=== PATIENT | male | born 1930 | race Caucasian/White ===

== ENCOUNTER 2016-08-27 18:14 | Inpatient (IN) | payer OTHER ==
--- NOTE | 2016-08-27 18:21 | EDPHY ---
H & P Time Seen by Provider: 08/27/16 18:19 HPI/ROS: CHIEF COMPLAINT: Mechanical fall, left hip pain and deformity HISTORY OF PRESENT ILLNESS: The patient presents to the ED after mechanical fall at a restaurant by paramedics. The patient reportedly slipped on a floor landing on his left hip. The patient developed immediate pain, deformity, shortening and internal rotation of the left hip. He was unable to ambulate. The patient does have a history of dementia. The patient denies any additional complaints of headache, neck pain, chest pain, back pain or additional extremity complaints. The patient denies antecedent chest pain, palpitations or shortness of breath. The patient complains of moderate pain with movement to his left hip. REVIEW OF SYSTEMS: A comprehensive 10 point review of systems is otherwise negative aside from elements mentioned in the history of present illness. Source: Patient, EMS - Medical/Surgical History Hx Asthma: No Hx Chronic Respiratory Disease: No Hx Diabetes: No Hx Cardiac Disease: Yes Hx Renal Disease: No Hx Cirrhosis: No Hx Alcoholism: No Hx HIV/AIDS: No Hx Splenectomy or Spleen Trauma: No Other PMH: DE, 3 stents, kidney stones - Social History Smoking Status: Former smoker - Physical Exam Exam: General Appearance: Elderly male, mild discomfort secondary to pain Head: Atraumatic Eyes: Pupils equal, round, reactive ENT, Mouth: No hemotympanum, no oral trauma Neck: Nontender, trachea midline Respiratory: No chest wall tender, subcutaneous air, lungs clear bilaterally Cardiovascular: Regular rate and rhythm Abdomen: Abdomen is soft and nontender, pelvis stable Skin: No lacerations, No abrasion Back: No midline T/L/S pain Extremities: Left hip is tender to palpation, shortening and internal rotation noted Neurological: A&Ox3, normal motor function, normal sensory exam Constitutional: Initial Vital Signs Temperature (C) 36.5 C 08/27/16 18:21 Heart Rate 77 08/27/16 18:21 Respiratory Rate 16 08/27/16 18:21 Blood Pressure 153/81 H 08/27/16 18:21 O2 Sat (%) 91 L 08/27/16 18:21 O2 Delivery Mode Room Air Allergies/Adverse Reactions: No Known Allergies Allergy (Verified 01/09/14 20:14) Home Medications: Medication Instructions Recorded Citalopram [CeleXA 20 MG] 20 mg PO 02/18/12 Tamsulosin HCl [Flomax 0.4 MG (*)] 0.4 mg PO DAILY8 02/18/12 Acetaminophen [Tylenol 325mg (*)] 500 - 1,000 mg PO Q4 PRN #30 tab 02/20/12 Aspirin EC [Aspirin EC 325 mg (*)] 325 mg PO DAILY #30 tab 02/20/12 Carvedilol [Coreg] 6.25 mg PO BID #60 tablet 02/20/12 Clopidogrel Bisulfate [Plavix (*)] 75 mg PO DAILY #30 tab 02/20/12 Nitroglycerin [Nitrostat 0.4 mg 0.4 mg SL PRN PRN #15 btl 02/20/12 (*)] Simvastatin [Zocor 20 mg] 20 mg PO DAILY18 #0 tab 02/20/12 oxyCODONE/APAP 5/325 [Percocet 1 - 2 tab PO Q4H PRN #20 tab 01/09/14 5/325 (RX)] Medical Decision Making - Diagnostics EKG Interpretation: EKG: Complete interpretation has been separately recorded in the [employer] archive. Summary impression: Sinus rhythm, bifascicular block Imaging Results: Imaging Impressions Chest X-Ray 08/27/16 18:18 Impression: Moderate cardiomegaly. Scarring left lower lobe. No acute abnormality identified. Hip X-Ray 08/27/16 18:18 Impression: 1. Angulated transverse fracture involving the base of the left femoral neck. 2. Indeterminate sclerotic lesion left iliac wing. If prior films are available , comparison would be of benefit. ED Course/Re-evaluation: The patient presents to the ED with clinical evidence of a left hip fracture. The patient had an IV established. He received 4 mg of IV morphine. The patient was placed on a housing installer. The patient was taken for a stat x- ray of his left hip which demonstrates a femoral neck fracture. The patient repeat examination by myself x2 in the ED without additional traumatic injury identified clinically. Consultation was made with Dr. Marlon Brewer from the orthopedic service. Consultation was made with Dr. Ralph Bourgeois from the hospitalist service. The patient will be admitted to Ortho bed this evening. Preoperative clearance per medicine. The patient should be kept NPO after midnight. The patient has been typed and crossed. Preoperative laboratory studies are unremarkable. Patient will be admitted to the ortho floor this evening. The patient was given an additional IV dose of morphine for pain control at 7: 00 p.m.. Differential Diagnosis: Differential diagnosis considered includes hip fracture, pelvic fracture, arrhythmia, critical anemia, dehydration - Data Points Laboratory Results: Laboratory Results 08/27/16 18:36 08/27/16 18:36 08/27/16 08/27/16 08/27/16 18:36 18:36 18:36 WBC 8.32 10^3/uL 10^3/uL (3.80-9.50) RBC 4.16 10^6/uL L 10^6/uL (4.40-6.38) Hgb 13.4 g/dL L g/dL (13.7-17.5) Hct 39.7 % L % (40.0-51.0) MCV 95.4 fL fL (81.5-99.8) MCH 32.2 pg pg (27.9-34.1) MCHC 33.8 g/dL g/dL (32.4-36.7) RDW 12.8 % % (11.5-15.2) Plt Count 47 10^3/uL L 10^3/uL (150-400) MPV 10.6 fL fL (8.7-11.7) Neut % (Auto) 47.3 % % (39.3-74.2) Lymph % (Auto) 41.9 % % (15.0-45.0) Beadle % (Auto) 7.2 % % (4.5-13.0) Eos % (Auto) 2.6 % % (0.6-7.6) Baso % (Auto) 0.4 % % (0.3-1.7) Nucleat RBC Rel Count 0.0 % % (0.0-0.2) Absolute Neuts (auto) 3.93 10^3/uL 10^3/uL (1.70-6.50) Absolute Lymphs (auto) 3.49 10^3/uL H 10^3/uL (1.00-3.00) Absolute Monos (auto) 0.60 10^3/uL 10^3/uL (0.30-0.80) Absolute Eos (auto) 0.22 10^3/uL 10^3/uL (0.03-0.40) Absolute Basos (auto) 0.03 10^3/uL 10^3/uL (0.02-0.10) Absolute Nucleated RBC 0.00 10^3/uL 10^3/uL (0-0.01) Immature Gran % 0.6 % % (0.0-1.1) Immature Gran # 0.05 10^3/uL 10^3/uL (0.00-0.10) Platelet Estimate Pending PT 13.6 SEC SEC (12.0-15.0) INR 1.05 (0.83-1.16) APTT 29.6 SEC SEC (23.0-38.0) Sodium 138 mEq/L mEq/L (134-144) Potassium 4.3 mEq/L mEq/L (3.5-5.2) Chloride 103 mEq/L mEq/L (97-110) Carbon Dioxide 23 mEq/l mEq/l (22-31) Anion Gap 12 mEq/L mEq/L (8-16) BUN 22 mg/dL mg/dL (7-23) Creatinine 1.2 mg/dL mg/dL (0.7-1.3) Estimated GFR 58 Glucose 100 mg/dL mg/dL (70-100) Calcium 9.3 mg/dL mg/dL (8.5-10.4) Medications Given: Discontinued Medications Morphine Sulfate (Morphine) 4 mg IVP EDNOW ONE Stop: 08/27/16 18:41 Last Admin: 08/27/16 18:44 Dose: 4 mg Morphine Sulfate (Morphine) 4 mg IVP EDNOW ONE Stop: 08/27/16 19:27 Last Admin: 08/27/16 19:27 Dose: 4 mg Departure - Departure Disposition: [facility] Inpatient Acute Clinical Impression: Left displaced femoral neck fracture, Vascular dementia, Coronary artery disease Condition: Fair Referrals: Patient,NotPresent [Primary Care Provider] - As per Instructions
[2016-08-27 18:44] LABS: % IMMATURE GRANULYOCYTES 0.6 % (0.0-1.1); ABSOLUTE IMMATURE GRANULOCYTES 0.05 10^3/uL (0.00-0.10); ADD DIFF? NO; ADD MORPH? NO; ADD SCAN? NO; ATYPICAL LYMPHOCYTE FLAG 10 (0-99); FRAGMENT RBC FLAG 0 (0-99); HEMATOCRIT 39.7 % (40.0-51.0); HEMOGLOBIN 13.4 g/dL (13.7-17.5); LEFT SHIFT FLG 0 (0-99); LIPEMIA HEMOLYSIS FLAG 90 (0-99); MEAN CELL HEMOGLOBIN 32.2 pg (27.9-34.1); MEAN CELL HEMOGLOBIN CONCENTR. 33.8 g/dL (32.4-36.7); MEAN CELL VOLUME 95.4 fL (81.5-99.8); MEAN PLATELET VOLUME 10.6 fL (8.7-11.7); PLATELET CLUMPS FLAG 30 (0-99); RED BLOOD CELL COUNT 4.16 10^6/uL (4.40-6.38); RED CELL DISTRIBUTION WIDTH 12.8 % (11.5-15.2)
[2016-08-27 19:12] LABS: ANION GAP 12 mEq/L (8-16); CALCIUM 9.3 mg/dL (8.5-10.4); CARBON DIOXIDE 23 mEq/l (22-31); CHLORIDE 103 mEq/L (97-110); CREATININE 1.2 mg/dL (0.7-1.3); GLOMERULAR FILTRATION RATE 58; GLUCOSE 100 mg/dL (70-100); INR 1.05 (0.83-1.16); POTASSIUM 4.3 mEq/L (3.5-5.2); PROTIME(PATIENT) 13.6 SEC (12.0-15.0); SODIUM 138 mEq/L (134-144)
[2016-08-27 19:13] LABS: APTT 29.6 SEC (23.0-38.0)
--- NOTE | 2016-08-27 19:24 | CPEKG ---
Heart Rate: 72 RR Interval: 833 P-R Interval: 165 QRSD Interval: 194 QT Interval: 492 QTC Interval: 539 P Chesterfield: 0 QRS Chesterfield: -61 T Wave Chesterfield: 23 EKG Severity - ABNORMAL ECG - EKG Impression: SINUS RHYTHM EKG Impression: RBBB AND LAFB Electronically Signed By: Xander Stevens 27-Aug-2016 22:09:30
[2016-08-27 19:53] LABS: % IMMATURE GRANULYOCYTES 0.5 % (0.0-1.1); ABSOLUTE IMMATURE GRANULOCYTES 0.04 10^3/uL (0.00-0.10); ADD DIFF? NO; ADD MORPH? NO; ADD SCAN? NO; ATYPICAL LYMPHOCYTE FLAG 10 (0-99); FRAGMENT RBC FLAG 0 (0-99); HEMATOCRIT 37.2 % (40.0-51.0); LEFT SHIFT FLG 10 (0-99); LIPEMIA HEMOLYSIS FLAG 90 (0-99); MEAN CELL HEMOGLOBIN 33.2 pg (27.9-34.1); MEAN CELL HEMOGLOBIN CONCENTR. 34.9 g/dL (32.4-36.7); MEAN CELL VOLUME 94.9 fL (81.5-99.8); MEAN PLATELET VOLUME 10.6 fL (8.7-11.7); PLATELET CLUMPS FLAG 10 (0-99); RED BLOOD CELL COUNT 3.92 10^6/uL (4.40-6.38); RED CELL DISTRIBUTION WIDTH 12.7 % (11.5-15.2)
[2016-08-27 20:24] LABS: PLATELET COUNT 194 10^3/uL (150-400)
[2016-08-27] MEDS ORDERED: ONDANSETRON DISINTEGRATING 4 MG TAB PO PRN (21:33)
[2016-08-27] MEDS ORDERED: ONDANSETRON 4 MG/2 ML VIAL IVP PRN (21:33)
[2016-08-27] MEDS: oxyCODONE IR 5 MG TAB PO PRN (21:52)
--- NOTE | 2016-08-27 21:53 | GCON ---
[f rep st] CONSULTATION DATE OF CONSULTATION: 08/27/2016 CHIEF COMPLAINT: Left hip pain, status post fall earlier this evening. HISTORY OF PRESENT ILLNESS: This is an 86-year-old male who presented to the ER via paramedics, sta tus post fall, complaining of left hip pain. The patient states he was going to dinner with his fam sabrina when he lost his balance and fell onto his left side. He had immediate pain in the left hip. T he patient states the pain is currently constant and an 8/10. The patient states he is unable to am bulate. The patient denies any current fever, chills, chest pain, headache, numbness, tingling, or weakness. The patient states at baseline he lives at home independently with his . He states h e walks slowly but does not use any type of cane or walker for ambulation. PAST MEDICAL HISTORY: Per report, he has had a myocardial infarction with stents placed, kidne y stones, hernia repair, and currently has prostate cancer and is not undergoing any type of treatme nt. PAST SURGICAL HISTORY: Stent placement x3, hernia repair, and right knee surgery when he was in [facility]. MEDICATIONS: Per report, he takes a full-strength aspirin daily, Prosteon, Flomax, Celexa, and various supplements. ALLERGIES: No known drug allergies. REVIEW OF SYSTEMS: No other complaints after a 10-point review. PHYSICAL EXAMINATION: GENERAL: The patient is a healthy, well-appearing male. He is alert, active , and in slight distress. HEENT: Head is normocephalic, atraumatic. Nose, ears, and mouth appear normal. Eye motion is intact. NECK: Normal in appearance with midline trachea. LUNGS: Chest mot ion appears normal. Respirations are nonlabored. MUSCULOSKELETAL: Skin is intact over the lower e xtremities bilaterally. There is no edema, ecchymosis, erythema or pallor. Range of motion of the left lower extremity is limited secondary to pain. He is able to wiggle his toes and move his feet bilaterally. The patient has full range of motion of his upper extremities bilaterally. The patien t has slight tenderness to palpation over the left hip. Sensation is intact throughout. Dorsalis p linwood pulses 2+ with brisk capillary refill. Calves are soft and nontender with negative Homans. SK IN: Please see dictation above. Otherwise, no other abrasions, erythema, or tattoos. NEUROLOGIC: Appears alert and oriented to person, place and time. Speech is fluid and fluent. PSYCHIATRIC: A ffect is normal. RADIOGRAPHIC DATA: 2-view radiographs are taken of the left hip, which show a transverse fracture a t the base of the left femoral neck. ASSESSMENT AND PLAN: Left femoral neck fracture. Discussed with patient and his family treatment f or this type of fracture is a left hip hemiarthroplasty with a possible total hip arthroplasty. The patient will remain at bed rest tonight and will be n.p.o. after midnight. Surgery is scheduled fo r tomorrow on August 28, 2016. Risks, benefits, and alternatives were discussed with the patient and h is , and they agree to proceed with surgery. Formal consent was reviewed and signed by both the and the patient. Care tonight will focus on pain control. Medicine team will clear for surge ry. Antibiotics on hold for the preop area. This plan was reviewed and discussed with Dr. Brewer t he on-call physician. The patient and his family agree and understand the treatment plan, and all o f their questions have been answered. /[id number]/MODL
--- NOTE | 2016-08-27 22:08 | GHP ---
[f rep st] HISTORY AND PHYSICAL DATE OF ADMISSION: 08/27/2016 CHIEF COMPLAINT: Fall and left hip pain. HISTORY OF PRESENT ILLNESS: This is an 86-year-old man, with history of Parkinson's, as well as cor onary artery disease, who presents after having a fall. He got up out of his car going into a resta urant, lost his balance, fell on his left hip. He tried to stand, but was unable to bear weight on that leg. He describes the pain in his left hip as severe. He has sensation and motor in his foot. He is not very ambulatory or active at baseline. He can walk up a flight of stairs, but he says it takes him about 5 minutes. He is taking an aspirin, but no other blood thinners. PAST MEDICAL/SURGICAL HISTORY: 1. Coronary artery disease, status post drug-eluting stent in 2011. 2. Parkinson disease. 3. Vascular dementia. 4. Hypertension. 5. Hyperlipidemia. 6. Depression. 7. BPH. MEDICATIONS: Please see medication reconciliation. ALLERGIES: None. FAMILY HISTORY: Parents are . SOCIAL HISTORY: He is accompanied by his . They live up on [facility]. REVIEW OF SYSTEMS: A 10-point review of systems is conducted and is negative except per HPI. PHYSICAL EXAMINATION: VITAL SIGNS: Blood pressure 116/88, heart rate 72, respiration rate 16, satt ing 95% on 2 L. Temperature 36.6. GENERAL: The patient appears mildly uncomfortable, lying on his back with his left leg externally rotated and foreshortened. HEENT: Shows him to be normocephalic , atraumatic. CARDIOVASCULAR: Shows regular rate and rhythm. No murmurs, rubs, or gallops. PULMO NARY: Shows lungs clear to auscultation bilaterally. ABDOMEN: Soft, nontender, nondistended. SKI N: Shows no rash. : Shows no Archer. NEUROLOGIC: Shows him to be alert and oriented x3. He is moving all extremities. PSYCHIATRIC: Shows normal mood and affect. EXTREMITIES: Left extremity shows it to be externally rotated, foreshortened. His foot is warm. He has a palpable dorsalis ped is pulse. He has motion and sensation intact in his left foot. DATA: 1. I reviewed his chart, including his previous hospitalization for when he had an NSTEMI, received stents. 2. EKG, which I personally viewed and interpreted, shows right bundle branch block and left anterio r fascicular block. This is still very similar to EKG, which was done in 2012. 3. Hip x-ray, which I personally reviewed and interpreted, shows a femoral neck fracture. 4. Chest x-ray, which I personally reviewed and interpreted, shows borderline cardiomegaly. IMPRESSION AND PLAN: This is an 86-year-old man, with multiple medical problems, presents with a hi p fracture. 1. Hip fracture: Will require operative fixation. Dr. Brewer has been consulted. Planning for ope rating room tomorrow. 2. Perioperative evaluation: He is at higher risk given his coronary artery disease and likely cer ebral vascular disease. Because of this, as well as his heart, his known coronary artery disease, marco gonsalves will obtain an echocardiogram prior to going to surgery. I have ordered that for this morning. Marco gonsalves will continue statin and beta melonie perioperatively. 3. Coronary artery disease: Not having any chest pain for some time. Does not have any angina. S eems stable for now. Workup as above. Would involve Cardiology if there are any concerns on his ec hocardiogram. 4. Parkinson disease: Continue Sinemet. 5. Dementia: Seems to be providing a reasonable history. His does provide some. This would put him at higher risk for delirium. 6. Venous thromboembolism risk: He is will be high risk with a hip fracture. We will hold venous thromboembolism prophylaxis tonight, but will need to start postoperatively. 7. Code status: He would like to be Do Not Resuscitate. He and his are clear on this. His s on is present during this conversation. /[id number]/MODL
[2016-08-27] MEDS ORDERED: NITROGLYCERIN 0.4 MG BTL SL PRN (22:47)
[2016-08-28] MEDS: oxyCODONE IR 5 MG TAB PO PRN ×2 (02:22→05:42)
[2016-08-28 05:53] LABS: % IMMATURE GRANULYOCYTES 0.4 % (0.0-1.1); ABSOLUTE IMMATURE GRANULOCYTES 0.04 10^3/uL (0.00-0.10); ADD DIFF? NO; ADD MORPH? NO; ADD SCAN? NO; ATYPICAL LYMPHOCYTE FLAG 0 (0-99); FRAGMENT RBC FLAG 0 (0-99); HEMATOCRIT 37.3 % (40.0-51.0); HEMOGLOBIN 12.7 g/dL (13.7-17.5); LEFT SHIFT FLG 20 (0-99); LIPEMIA HEMOLYSIS FLAG 90 (0-99); MEAN CELL HEMOGLOBIN 32.9 pg (27.9-34.1); MEAN CELL VOLUME 96.6 fL (81.5-99.8); MEAN PLATELET VOLUME 11.2 fL (8.7-11.7); PLATELET CLUMPS FLAG 0 (0-99); PLATELET COUNT 162 10^3/uL (150-400); RED BLOOD CELL COUNT 3.86 10^6/uL (4.40-6.38); RED CELL DISTRIBUTION WIDTH 12.9 % (11.5-15.2)
[2016-08-28 05:59] LABS: ANION GAP 8 mEq/L (8-16); CARBON DIOXIDE 25 mEq/l (22-31); CHLORIDE 105 mEq/L (97-110); CREATININE 1.2 mg/dL (0.7-1.3); GLOMERULAR FILTRATION RATE 58; GLUCOSE 123 mg/dL (70-100); POTASSIUM 4.2 mEq/L (3.5-5.2); SODIUM 138 mEq/L (134-144)
[2016-08-28] MEDS ORDERED: ceFAZolin 2 GM/DEXTROSE 100 ML IV ONE (06:00)
[2016-08-28] MEDS: TAMSULOSIN HCL 0.4 MG CAP PO SCH (08:16)
[2016-08-28] MEDS: CITALOPRAM 20 MG TAB PO SCH (08:16)
[2016-08-28] MEDS: NS 1,000 ML IV SCH ×2 (08:17→20:13)
--- NOTE | 2016-08-28 08:57 | ECHO ---
[id number] + + [id number] : : [place] [id number] : : [phone] + + Adult Echocardiographic Report + -----+ :Name: ALEJO ESPINOZA WStudy Date: 08/28/2016 07:39 AM : : Hospital Admission Number: [id number] Location : 388: :: [id number] Gender: Male Height: 73 in : :Age: 86 yrs Race: WH Weight: 260 lb : :Reason For Study: Pre op hip : : BSA: 2.4 meters2 : :History: CAD : + -----+ MMode/2D Measurements \T\ Calculations LVIDd: 5.8 cm EDV(Teich): 166.6 ml Ao root diam: 3.8 cm LA dimension: 4.0 cm Normal Measurement Values: + + :LVIDd (3.5-5.7cm) IVSd (0.6-1.1cm) LVPWd (0.6-1.1cm) Aortic Root (2.0-3.7cm)Left Atrium (1.5-4.0cm): :LV Vol(d) (76-115ml) LV Vol(s) (29-48ml) Ejec Fraction (50-65%)PV Ramsey (0.6- 1.2m/s) TV Ramsey (0.4-1.0m/s) : :MV E Ramsey (0.8-1.0m/s)MV A Ramsey (0.3-1.0m/s)LVOT Ramsey (0.7-1.2m/s) Asc Ao Ramsey ( 0.9-1.8m/s) : + + Doppler Measurements \T\ Calculations MV E max ramsey: 45.4 cm/sec Ao mean P.3 mmHg MV A max ramsey: 88.4 cm/sec Ao V2 mean: 111.6 cm/sec MV E/A: 0.51 Ao V2 VTI: 29.9 cm Left Ventricle The left ventricle is normal in size. There is mild concentric left ventricular hypertrophy. EF estimate is 55-60%. Regional wall motion abnormalities cannot be excluded due to limited visualization. Right Ventricle The right ventricle is normal size. The right ventricular systolic function is normal. Atria The left atrial size is normal. Right atrial size is normal. Mitral Valve There is mild mitral annular calcification. Tricuspid Valve The tricuspid valve is not well visualized. Aortic Valve The aortic valve opens well. Mild Aortic Valve Calcification. Pulmonic Valve The pulmonic valve is not well visualized. Great Vessels The aortic root is normal size. Pericardium/Pleural There is no pericardial effusion. Conclusion A complete two-dimensional transthoracic echocardiogram was performed (2D, M-mode, Doppler and color flow Doppler). The study was technically difficult. Technically limited study with poor acoustic windows. EF estimate is 55-60%. Grade I diastolic dysfunction. No obvious regional wall motion abnormalities; these cannot be excluded based on this study. There is mild concentric left ventricular hypertrophy. Age related valvular changes. No significant valvular stenosis or insufficiency. Final Reading Physician: Vicky Vargas signed on 08/28/2016 08:55 AM Ordering Physician: Ralph Bourgeois Performed By: Catrina Fisher RDCS
--- NOTE | 2016-08-28 10:27 | SOAPPROG ---
SOAP Progress Note Assessment/Plan: Assessment/Plan: left femoral neck fracture - Surgery this afternoon with Dr. Brewer - Remain NPO - Continue bedrest - Continue pain management - Antibiotics on hold for OR - PT/OT following surgery 08/28/16 10:24 Subjective: Pt states he continues to have constant 9/10 pain in the left hip. He was able to sleep last night and has been NPO since midnight. Pt has been consented for surgery this afternoon. Objective: Vital Signs Temp Pulse Resp BP Pulse Ox 36.9 C 84 22 H 146/65 H 93 08/28/16 08:00 08/28/16 08:00 08/28/16 08:00 08/28/16 08:00 08/28/16 08:00 Laboratory Results 08/28/16 05:28 08/28/16 05:28 08/27/16 08/28/16 08/29/16 05:59 05:59 05:59 Intake Total 20 Output Total 100 Balance -80 PT 13.6 SEC (12.0-15.0) 08/27/16 18:36 INR 1.05 (0.83-1.16) 08/27/16 18:36 Physical Exam - Physical Exam General Appearance: alert, mild distress Peripheral Pulses: 2+: dorsalis-pedis (R), dorsalis-pedis (L) Skin: normal color, warm/dry Extremities: normal capillary refill, other (TTP throughout L hip; strength and sensation of feet bilaterally intact), No pedal edema, No calf tenderness, No swelling, No David's sign Neuro/Psych: no motor/sensory deficits, alert, normal mood/affect, oriented x 3 ICD10 Worksheet Patient Problems: Problems Problem Status Onset Coronary artery disease Acute Left displaced femoral neck fracture Acute Vascular dementia Acute
[2016-08-28] MEDS ORDERED: BUPIVACAINE/EPI 0.5% 30 ML SDV ONE (11:57)
[2016-08-28] MEDS ORDERED: POLYMYXIN B SULFATE 500,000 UNIT/10 ML SYR IRR ONE (11:58)
[2016-08-28] MEDS ORDERED: BACITRACIN 50,000 UNITS/10 ML SYR IRR ONE (11:58)
--- NOTE | 2016-08-28 12:38 | HOSPPROG ---
Hospitalist Progress Note Assessment/Plan: 86y male with mechanical fall and hip pain. This is my first encounter, chart reviewed. #Hip fx to OR today #Pain cont meds and support #Hx of Cad ECHO, EF 50-55% diastolic dysfunction #Parkinsons cont sinemet #Dementia close to baseline #DVT proph per ortho #Dispo unclear, plan for surgery follow labs Subjective: Having significant pain. Tired, waiting for surgery. Objective: Vital Signs Temp Pulse Resp BP Pulse Ox 37 C 74 20 121/68 H 91 L 08/28/16 12:00 08/28/16 12:00 08/28/16 12:00 08/28/16 12:00 08/28/16 12:00 Laboratory Results 08/28/16 05:28 08/28/16 05:28 08/27/16 08/28/16 08/29/16 05:59 05:59 05:59 Intake Total 20 Output Total 100 Balance -80 PT 13.6 SEC (12.0-15.0) 08/27/16 18:36 INR 1.05 (0.83-1.16) 08/27/16 18:36 - Physical Exam Constitutional: appears nourished, chronically ill appearing, uncomfortable Eyes: PERRL, anicteric sclera, EOMI Ears, Nose, Mouth, Throat: moist mucous membranes, hearing normal, ears appear normal Cardiovascular: No JVD, No tachycardia, No edema Respiratory: no respiratory distress, no rales or rhonchi, reduced air movement Gastrointestinal: No tenderness, No ascites, No guarding Skin: warm, normal color, No erythema Musculoskeletal: joint tenderness, pain with ROM, muscular tenderness, generalized weakness Psychiatric: not anxious, not encephalopathic, poor insight, poor judgement, poor memory ICD10 Worksheet Patient Problems: Problems Problem Status Onset Left displaced femoral neck fracture Acute Vascular dementia Acute Coronary artery disease Acute
[2016-08-28] MEDS ORDERED: CEFAZOLIN 2 GM/DEXTROSE/100 ML BAG IV ONE (14:27)
[2016-08-28] MEDS ORDERED: PROPOFOL/EMULSION 500 MG/50 ML BOTTLE IV ONE (15:07)
[2016-08-28] MEDS ORDERED: ALBUMIN 5% 250 ML BOTTLE IV ONE (15:08)
[2016-08-28] MEDS ORDERED: fentaNYL 100 MCG/2 ML INJ ONE ×3 (15:08→17:42)
[2016-08-28] MEDS ORDERED: ROCURONIUM 50 MG/5 ML VIAL ONE ×2 (16:03→16:53)
[2016-08-28] MEDS ORDERED: LIDOCAINE 2% 5 ML SDV ONE (16:03)
[2016-08-28] MEDS ORDERED: SUGAMMADEX SODIUM 200 MG/2 ML VIAL IVP ONE (16:03)
[2016-08-28] MEDS ORDERED: ONDANSETRON 4 MG/2 ML VIAL ONE (16:03)
[2016-08-28 16:41] LABS: BASE EXCESS -1.1 mEq/L (-2.5-2.5); BICARBONATE 23 mEq/L (22-26); HEMOGLOBIN ABG 12.7 gm/dL (14.5-17.3); IONIZED CALCIUM 1.17 MMOL/L (1.12-1.30); MEASURED OXYGEN SATURATION 98 % (92-95); PCO2 39 mmHg (34-38); PO2 118 mmHg (65-75); SODIUM ABG 140 mEq/L (137-146); TCO2 24 mEq/L (23-27)
[2016-08-28] MEDS ORDERED: epHEDrine SULFATE 10 MG/ML SYR ONE (17:02)
--- NOTE | 2016-08-28 17:26 | POSTOPPROG ---
Post Op Note Date of Operation: 08/28/16 Surgeon: Shaq Galarza Awning Hanger: Neto Galarza PA-C Anesthesia: GET(General Endotracheal) Pre-op Diagnosis: Left subcapital femoral neck fracture Post-op Diagnosis: Left subcapital femoral neck fracture Procedure: Left hip bipolar vandana arthroplasty Findings: As above, please see full dictation for details. Inf/Abcess present in the surg proc area at time of surgery?: No Depth: Deep Incisional (Fascial) EBL: 500-1000 Complications: None Drains: Cristiano Gregory
[2016-08-28] MEDS ORDERED: CYCLOBENZAPRINE 10 MG TAB PO PRN (17:27)
[2016-08-28] MEDS ORDERED: diphenhydrAMINE 25 MG CAP PO PRN (17:27)
[2016-08-28] MEDS ORDERED: POLYETHYLENE GLYCOL 3350 17 GM PKT PO PRN (17:27)
[2016-08-28] MEDS ORDERED: DIPHENOXYLATE/ATROPINE LOMOTIL 1 TAB PO PRN (17:27)
[2016-08-28] MEDS ORDERED: TEMAZEPAM 15 MG CAP PO PRN (17:27)
[2016-08-28] MEDS ORDERED: BISACODYL 10 MG SUPP PR PRN (17:27)
[2016-08-28] MEDS ORDERED: MAGNESIUM HYDROXIDE 30 ML UDCUP PO PRN (17:27)
[2016-08-28] MEDS ORDERED: PHARMACY PAIN CONSULT 1 EA MISC PRN (17:27)
[2016-08-28] MEDS ORDERED: LACTULOSE 20 GM/30 ML UDCUP PO PRN (17:27)
--- NOTE | 2016-08-28 17:38 | SOAPPROG ---
SOAP Progress Note Assessment/Plan: Assessment/Plan: Left subcapital femoral neck fracture s/p Left hip bipolar hemiarthroplasty performed by Dr. Brewer on 08/28/2016, POD # 0 -Cont PT/OT, pt will be WBAT -Cont current pain regimen, encourage PO medication as tolerated -Cont Ancef for abx prophylaxis as ordered -Cont SCDs and TEDs for VTE mechanical prophylaxis -May begin Lovenox as ordered for VTE chemoprophylaxis -Ortho will remove drain POD#1 if w/out significant discharge 08/28/16 17:35 Subjective: Pt transported to PACU in stable condition Objective: Vital Signs Temp Pulse Resp BP Pulse Ox 37 C 74 20 121/68 H 91 L 08/28/16 12:00 08/28/16 12:00 08/28/16 12:00 08/28/16 12:00 08/28/16 12:00 Laboratory Results 08/28/16 16:00 08/28/16 16:00 08/27/16 08/28/16 08/29/16 05:59 05:59 05:59 Intake Total 20 0 Output Total 100 200 Balance -80 -200 PT 13.6 SEC (12.0-15.0) 08/27/16 18:36 INR 1.05 (0.83-1.16) 08/27/16 18:36 ICD10 Worksheet Patient Problems: Problems Problem Status Onset Coronary artery disease Acute Left displaced femoral neck fracture Acute Vascular dementia Acute
[2016-08-28] MEDS: ceFAZolin 2 GM/DEXTROSE 100 ML IV SCH (22:10)
[2016-08-28] MEDS: ASCORBIC ACID 500 MG TAB PO SCH (22:11)
[2016-08-28] MEDS: CARBIDOPA/LEVODOPA 25 MG/100 MG TAB PO SCH (22:11)
[2016-08-28] MEDS: SENNOSIDES/DOCUSATE SODIUM TAB PO SCH (22:12)
[2016-08-28] MEDS ORDERED: ACETAMINOPHEN 650 MG SUPP PR PRN (23:25)
[2016-08-29 00:38] LABS: % IMMATURE GRANULYOCYTES 0.5 % (0.0-1.1); ABSOLUTE IMMATURE GRANULOCYTES 0.06 10^3/uL (0.00-0.10); ADD DIFF? NO; ADD MORPH? NO; ADD SCAN? NO; ATYPICAL LYMPHOCYTE FLAG 0 (0-99); FRAGMENT RBC FLAG 0 (0-99); HEMATOCRIT 33.5 % (40.0-51.0); HEMOGLOBIN 11.2 g/dL (13.7-17.5); LEFT SHIFT FLG 20 (0-99); LIPEMIA HEMOLYSIS FLAG 80 (0-99); MEAN CELL HEMOGLOBIN 33.1 pg (27.9-34.1); MEAN CELL HEMOGLOBIN CONCENTR. 33.4 g/dL (32.4-36.7); MEAN CELL VOLUME 99.1 fL (81.5-99.8); PLATELET CLUMPS FLAG 10 (0-99); PLATELET COUNT 144 10^3/uL (150-400); RED BLOOD CELL COUNT 3.38 10^6/uL (4.40-6.38); RED CELL DISTRIBUTION WIDTH 13.2 % (11.5-15.2)
[2016-08-29 01:25] LABS: COLOR YELLOW; LEUKOCYTE ESTERASE,URINE NEGATIVE (NEGATIVE); NITRITE,URINE NEGATIVE (NEGATIVE)
[2016-08-29 01:38] LABS: BACTERIA TRACE /hpf (NONE SEEN); MUCUS 2+ /lpf (NONE-1+); RBC,URINE 50-182 /hpf (0-3); WBC,URINE 15-25 /hpf (0-3)
--- NOTE | 2016-08-29 03:22 | GOP ---
[f rep st] OPERATIVE REPORT DATE OF OPERATION: 08/28/2016 SURGEON: Marlon Brewer MD EVENT MARKETING ASSISTANT: Shaq Galarza PA-C. ANESTHESIA: General. PREOPERATIVE DIAGNOSIS: Left subcapital hip fracture. POSTOPERATIVE DIAGNOSIS: Left subcapital hip fracture. PROCEDURE PERFORMED: Open treatment, left subcapital hip fracture with a bipolar hemiarthroplasty ( [place]). FINDINGS: DESCRIPTION OF PROCEDURE: The patient taken to the operative room, administered general anesthesia, placed in a right lateral decubitus position, and had his left hip and lower extremity prepped and draped in normal sterile fashion. A posterolateral incision was made through dermal and subcutaneou s tissues. The gluteal fascia was divided and extended over the greater trochanter into the IT band . The Charnley retractor was put in place. The hip was internally rotated and the external rotator s were brought under tension. The piriformis and external hip capsule were reflected. The head fra cture segment was removed with a tenaculum. The neck cut was then freshened up with a saw. Fragmen ts of bone were removed from inside the acetabulum. The acetabulum was debrided, removing a remnant of the ligamentum teres. Thorough lavage performed with saline. The acetabulum was sized to a siz e 56. The proximal femur was exposed. A box osteotome was used to remove bone from the greater tro chanter. A starting reamer was placed manually. Powered reaming then commenced with a size 6, exte nding up to a size 12. Broaching began with a size 8 and extended up to a size 12. Size 12 real im plant was then impacted into the femur. The trunnion was dried. The inner ball was then placed on the trunnion and impacted. The outer ball was then placed on the trunnion. The hip was reduced and felt to be stable. The external rotators and posterior hip capsule were repaired through drill hol es in the greater trochanter. Thorough lavage was performed with saline. A evodw-fpkjaquiuo-znqe d rain was placed deeply. The iliotibial band was then reapproximated with interrupted 0 Vicryl sutur e, followed by closure of the subcutaneous tissues with a 2-0 Vicryl suture, followed by closure of the dermis with anton. The drain was hooked up. A sterile compression dressing applied. The pat ient had an abduction pillow placed. He tolerated the procedure well and was transferred back to [facility] in stable condition. There were no operative complications. COMPLICATIONS: None. IMPLANTS UTILIZED: Jose, size 12, Secure-Fit stem, with a bipolar, size 56 head. /[id number]/MODL
[2016-08-29] MEDS: ceFAZolin 2 GM/DEXTROSE 100 ML IV SCH (05:15)
[2016-08-29] MEDS: oxyCODONE IR 5 MG TAB PO PRN ×3 (05:16→23:38)
--- NOTE | 2016-08-29 06:49 | SOAPPROG ---
SOAP Progress Note Assessment/Plan: Assessment/Plan: Left subcapital femoral neck fracture s/p Left hip bipolar hemiarthroplasty performed by Dr. Brewer on 08/28/2016, POD # 1 -Cont PT/OT, pt will be WBAT -Cont current pain regimen, encourage PO medication as tolerated -Cont Ancef for abx prophylaxis as ordered -Cont SCDs and TEDs for VTE mechanical prophylaxis -May begin Lovenox as ordered for VTE chemoprophylaxis -Poss postop atelectasis vs PNU, cont to monitor, encourage IS -Drain removed -Likely d/c to SNF when cleared 08/29/16 06:49 Subjective: Pt seen at bedside. He is slow to answer questions, but answers "no" to inquiries about significant pain, or new onset n/t. He also voices that he has no other complaints. Pt is unable to effectively communicate a complete review of symptoms at this time. Nursing report notes no complaints of pain overnight, and states he is more communicative this am. They also note a low grade fever, and note that the hospitalist cushion stuffer has ordered a CXR, which has resulted with atelactesis, however could not r/o PNU. They note he has been compliant with his abduction pillow use, as well as note his catheter is in place until he has been mobile with PT. They have also been encouraging IS. No additional concerns or complaints. Objective: Vital Signs Temp Pulse Resp BP Pulse Ox 37.6 C 76 20 123/53 H 98 08/29/16 05:36 08/29/16 05:36 08/29/16 05:36 08/29/16 05:36 08/29/16 05:36 Laboratory Results 08/29/16 00:10 08/28/16 16:00 08/28/16 08/29/16 08/30/16 05:59 05:59 05:59 Intake Total 20 800 Output Total 100 1625 Balance -80 -825 PT 13.6 SEC (12.0-15.0) 08/27/16 18:36 INR 1.05 (0.83-1.16) 08/27/16 18:36 Pt seen at bedside. NAD, VSS. Exam of LLE reveals intact post op dressings, CDI. Drain in place, removed w/out complication. Intact anton. Surgical incision appears well healed, no surrounding erythema, calor, discharge or induration. Thigh compartment is supple. Post calves in NTTP, no palpable vascular cords, neg David's bilat. Pt moves foot and toes well. Intact SCDs and TEDs, abductor pillow in place. DNVI BLE. ICD10 Worksheet Patient Problems: Problems Problem Status Onset Coronary artery disease Acute Left displaced femoral neck fracture Acute Vascular dementia Acute
[2016-08-29] MEDS: ACETAMINOPHEN 325 MG TAB PO PRN ×2 (08:50→23:37)
[2016-08-29] MEDS: TAMSULOSIN HCL 0.4 MG CAP PO SCH (08:51)
[2016-08-29] MEDS: CITALOPRAM 20 MG TAB PO SCH (08:51)
[2016-08-29] MEDS ORDERED: VITAMIN B COMPLEX 1 EA CAP/TAB PO SCH (09:00)
[2016-08-29] MEDS: MAGNESIUM OXIDE 400 MG TAB PO SCH (09:32)
[2016-08-29] MEDS: ASCORBIC ACID 500 MG TAB PO SCH ×2 (09:32→21:02)
[2016-08-29] MEDS: CYANO/VITAMIN B12 1000 MCG TAB PO SCH (09:32)
[2016-08-29] MEDS: VITAMIN B COMPLEX 1 EA CAP/TAB PO SCH (09:32)
[2016-08-29] MEDS: CHOLECALCIFEROL VIT D3 2,000 UNITS TAB/CAP PO SCH (09:32)
[2016-08-29 09:38] LABS: HEMATOCRIT 31.7 % (40.0-51.0); HEMOGLOBIN 10.5 g/dL (13.7-17.5)
[2016-08-29] MEDS: ENOXAPARIN 40 MG/0.4 ML SYR SC SCH (10:25)
[2016-08-29] MEDS ORDERED: FUROSEMIDE 40 MG/4 ML VIAL IVP ONE (10:26)
[2016-08-29 10:57] LABS: TROPONIN I 0.046 ng/mL (0-0.034)
[2016-08-29] MEDS: CARBIDOPA/LEVODOPA 25 MG/100 MG TAB PO SCH ×2 (11:00→21:03)
[2016-08-29] MEDS: SENNOSIDES/DOCUSATE SODIUM TAB PO SCH ×2 (13:14→21:04)
--- NOTE | 2016-08-29 14:43 | HOSPPROG ---
Hospitalist Progress Note Assessment/Plan: 86y male with mechanical fall and hip pain. Pt reviewed with Dr Toni Schaefer. #Hip fx POD #1 drain removed today #Anemia follow labs stable #Fever ?etiol possible multifactorial ATX, UTI, postop #Hypotension stable #Acute hypoxemic resp failure cont o2 ? multiple reasons ATX, CHF, PNA? #Pain cont meds and support #Hx of Cad ECHO, EF 50-55% diastolic dysfunction some CHF, does of IV lasix today 40mg follow, may need more #Parkinsons cont sinemet #Dementia close to baseline #UTI started CTX follow cx #DVT proph per ortho #Dispo unclear, inpt rehab consult ordered follow labs Subjective: Doesn't feel well. No pain currently. No specific issues. Objective: Vital Signs Temp Pulse Resp BP Pulse Ox 36.8 C 68 17 101/57 L 91 L 08/29/16 12:27 08/29/16 12:27 08/29/16 12:27 08/29/16 12:27 08/29/16 12:27 Laboratory Results 08/29/16 08:43 08/28/16 16:00 08/28/16 08/29/16 08/30/16 05:59 05:59 05:59 Intake Total 20 800 Output Total 100 1625 Balance -80 -825 PT 13.6 SEC (12.0-15.0) 08/27/16 18:36 INR 1.05 (0.83-1.16) 08/27/16 18:36 - Physical Exam Constitutional: appears nourished, chronically ill appearing, obese Eyes: PERRL, anicteric sclera, EOMI Ears, Nose, Mouth, Throat: moist mucous membranes, hearing normal, ears appear normal Cardiovascular: edema, No tachycardia, No bradycardia Respiratory: no respiratory distress, reduced air movement, rhonchi Gastrointestinal: tenderness, distension, No ascites, No guarding Skin: warm, normal color, No induration Musculoskeletal: joint tenderness, pain with ROM, muscular tenderness, generalized weakness Psychiatric: not anxious, not encephalopathic, poor insight, poor judgement, poor memory ICD10 Worksheet Patient Problems: Problems Problem Status Onset Left displaced femoral neck fracture Acute Vascular dementia Acute Coronary artery disease Acute
--- NOTE | 2016-08-29 14:46 | CPEKG ---
Heart Rate: 72 RR Interval: 833 P-R Interval: 140 QRSD Interval: 174 QT Interval: 472 QTC Interval: 517 P Ephraim: -19 QRS Ephraim: -67 T Wave Ephraim: -8 EKG Severity - ABNORMAL ECG - EKG Impression: SINUS RHYTHM EKG Impression: RBBB AND LAFB Electronically Signed By: Joy Vanessa 29-Aug-2016 17:21:33
--- NOTE | 2016-08-30 07:53 | SOAPPROG ---
SOAP Progress Note Assessment/Plan: Assessment/Plan: Left subcapital femoral neck fracture s/p Left hip bipolar hemiarthroplasty performed by Dr. Brewer on 08/28/2016, POD # 1 -Cont PT/OT, pt will be WBAT -Cont current pain regimen, encourage PO medication as tolerated -Cont Ancef for abx prophylaxis as ordered -Cont SCDs and TEDs for VTE mechanical prophylaxis -Cont Lovenox for VTE chemoprophylaxis, pt will cont this medication for 28 days postop -Poss postop atelectasis vs PNU, cont to monitor, encourage IS, afebrile since am -Likely d/c to SNF/inpatient rehab pending cont success w/ PO pain meds, no significant bleeding, CM placement/inpatient rehab qualification, PT/OT approval , and medicine service approval 08/30/16 07:54 Subjective: Pt seen at bedside. He remains slow to answer questions, recently awoken. Pt denies significant pain at this time, but does state "he feels a bit better, but still does not feel well." He answers "yes" to questioning on whether his is tolerating his diet and medications well. Pt is unable to effectively communicate a complete review of symptoms at this time, but does deny specifically cp, sob, post calf pain or BLE n/t.. Nursing report notes no complaints of pain overnight, and states he is again more communicative this am. Pt has been afebrile for the past 24hrs. They note he has been compliant with his abduction pillow use, and the smaller pillow was placed. Catheter removed as pt was able to mobilize w/ PT. They have also been encouraging IS. No additional concerns or complaints. Objective: Vital Signs Temp Pulse Resp BP Pulse Ox 36.6 C 76 18 154/78 H 93 08/30/16 00:00 08/30/16 00:00 08/30/16 00:00 08/30/16 00:00 08/30/16 00:00 Laboratory Results 08/29/16 08:43 08/28/16 16:00 08/29/16 08/30/16 08/31/16 05:59 05:59 05:59 Intake Total 800 800 Output Total 1625 850 Balance -825 -50 PT 13.6 SEC (12.0-15.0) 08/27/16 18:36 INR 1.05 (0.83-1.16) 08/27/16 18:36 Pt seen at bedside. NAD, VSS. H&H slightly decreased, but O2sats remain stable on current supplemental O2. Exam of LLE reveals intact post op dressings , CDI. Intact anton. Surgical incision appears to be healing well, no surrounding erythema, calor, discharge or induration noted. Thigh compartment is supple. Post calves in NTTP, no palpable vascular cords, neg David's bilat. Pt moves foot and toes well. Intact SCDs and TEDs, small abductor pillow in place. DNVI BLE. ICD10 Worksheet Patient Problems: Problems Problem Status Onset Coronary artery disease Acute Left displaced femoral neck fracture Acute Vascular dementia Acute
[2016-08-30] MEDS: CITALOPRAM 20 MG TAB PO SCH (09:22)
[2016-08-30] MEDS: ACETAMINOPHEN 325 MG TAB PO PRN ×2 (09:23→22:14)
[2016-08-30] MEDS: oxyCODONE IR 5 MG TAB PO PRN ×2 (09:23→15:53)
[2016-08-30] MEDS: CYANO/VITAMIN B12 1000 MCG TAB PO SCH (09:24)
[2016-08-30] MEDS: ASCORBIC ACID 500 MG TAB PO SCH ×2 (09:25→22:12)
[2016-08-30] MEDS: TAMSULOSIN HCL 0.4 MG CAP PO SCH (09:25)
[2016-08-30] MEDS: CHOLECALCIFEROL VIT D3 2,000 UNITS TAB/CAP PO SCH (09:25)
[2016-08-30] MEDS: VITAMIN B COMPLEX 1 EA CAP/TAB PO SCH (09:25)
[2016-08-30] MEDS: CARBIDOPA/LEVODOPA 25 MG/100 MG TAB PO SCH ×2 (09:25→22:07)
[2016-08-30] MEDS: MAGNESIUM OXIDE 400 MG TAB PO SCH (09:25)
[2016-08-30] MEDS: SENNOSIDES/DOCUSATE SODIUM TAB PO SCH ×2 (09:25→22:08)
[2016-08-30] MEDS: ENOXAPARIN 40 MG/0.4 ML SYR SC SCH (09:26)
[2016-08-30] MEDS ORDERED: FUROSEMIDE 20 MG/2 ML VIAL IVP ONE (15:37)
--- NOTE | 2016-08-30 15:42 | HOSPPROG ---
Hospitalist Progress Note Assessment/Plan: 86y male with mechanical fall and hip pain. First encounter with this patient. Records reviewed. CXR personally reviewed #Hip fx POD #2 WBAT PT/OT #Anemia follow labs stable #Fever ?etiol possible multifactorial ATX, UTI, postop #Hypotension stable #Acute hypoxemic resp failure cont o2 ? multiple reasons ATX, CHF, PNA? #Pain cont meds and support #Hx of Cad ECHO, EF 50-55% diastolic dysfunction some CHF, repeat dose of IV lasix today 40mg follow, may need more #Parkinsons cont sinemet #Dementia close to baseline #UTI on CTX follow cx #DVT proph per ortho #Dispo unclear, inpt rehab consult ordered follow labs Plan: -additional diuretics today -repeat CXR -not ready for discharge Subjective: still on 6 L o2. Denies any supplemental O2 at home. First encounter with this patient Objective: Vital Signs Temp Pulse Resp BP Pulse Ox 36.6 C 73 18 120/56 L 96 08/30/16 15:27 08/30/16 15:27 08/30/16 15:27 08/30/16 15:27 08/30/16 15:27 Laboratory Results 08/29/16 08:43 08/28/16 16:00 08/29/16 08/30/16 08/31/16 05:59 05:59 05:59 Intake Total 800 800 Output Total 1625 850 Balance -825 -50 PT 13.6 SEC (12.0-15.0) 08/27/16 18:36 INR 1.05 (0.83-1.16) 08/27/16 18:36 - Physical Exam Constitutional: no apparent distress, appears nourished Eyes: PERRL, EOMI Ears, Nose, Mouth, Throat: moist mucous membranes Cardiovascular: regular rate and rhythym, edema Respiratory: rhonchi Gastrointestinal: normoactive bowel sounds, soft, non-tender abdomen Skin: warm, normal color Psychiatric: flat affect, poor memory, No not encephalopathic ICD10 Worksheet Patient Problems: Problems Problem Status Onset Coronary artery disease Acute Left displaced femoral neck fracture Acute Vascular dementia Acute
[2016-08-31] MEDS: oxyCODONE IR 5 MG TAB PO PRN (04:43)
[2016-08-31] MEDS: ACETAMINOPHEN 325 MG TAB PO PRN ×3 (04:48→21:22)
[2016-08-31 05:49] LABS: % IMMATURE GRANULYOCYTES 0.3 % (0.0-1.1); ABSOLUTE IMMATURE GRANULOCYTES 0.02 10^3/uL (0.00-0.10); ADD DIFF? NO; ADD MORPH? NO; ADD SCAN? NO; ATYPICAL LYMPHOCYTE FLAG 0 (0-99); FRAGMENT RBC FLAG 0 (0-99); HEMOGLOBIN 9.6 g/dL (13.7-17.5); LEFT SHIFT FLG 10 (0-99); LIPEMIA HEMOLYSIS FLAG 90 (0-99); MEAN CELL HEMOGLOBIN 32.9 pg (27.9-34.1); MEAN CELL HEMOGLOBIN CONCENTR. 34.3 g/dL (32.4-36.7); MEAN CELL VOLUME 95.9 fL (81.5-99.8); MEAN PLATELET VOLUME 11.2 fL (8.7-11.7); PLATELET CLUMPS FLAG 0 (0-99); PLATELET COUNT 142 10^3/uL (150-400); RED BLOOD CELL COUNT 2.92 10^6/uL (4.40-6.38); RED CELL DISTRIBUTION WIDTH 12.4 % (11.5-15.2)
[2016-08-31 06:33] LABS: ANION GAP 9 mEq/L (8-16); CALCIUM 8.3 mg/dL (8.5-10.4); CARBON DIOXIDE 25 mEq/l (22-31); CHLORIDE 103 mEq/L (97-110); GLOMERULAR FILTRATION RATE > 60; GLUCOSE 129 mg/dL (70-100); POTASSIUM 3.9 mEq/L (3.5-5.2); SODIUM 137 mEq/L (134-144)
[2016-08-31] MEDS: CITALOPRAM 20 MG TAB PO SCH (10:20)
[2016-08-31] MEDS: SENNOSIDES/DOCUSATE SODIUM TAB PO SCH ×2 (10:20→21:22)
[2016-08-31] MEDS: MAGNESIUM OXIDE 400 MG TAB PO SCH (10:34)
[2016-08-31] MEDS: ASCORBIC ACID 500 MG TAB PO SCH ×2 (10:34→21:23)
[2016-08-31] MEDS: CHOLECALCIFEROL VIT D3 2,000 UNITS TAB/CAP PO SCH (10:34)
[2016-08-31] MEDS: TAMSULOSIN HCL 0.4 MG CAP PO SCH (10:35)
[2016-08-31] MEDS: CARBIDOPA/LEVODOPA 25 MG/100 MG TAB PO SCH ×2 (10:35→21:23)
[2016-08-31] MEDS: VITAMIN B COMPLEX 1 EA CAP/TAB PO SCH (10:35)
[2016-08-31] MEDS: CYANO/VITAMIN B12 1000 MCG TAB PO SCH (10:36)
[2016-08-31] MEDS: ENOXAPARIN 40 MG/0.4 ML SYR SC SCH (10:39)
--- NOTE | 2016-08-31 13:20 | SOAPPROG ---
SOAP Progress Note Assessment/Plan: Assessment/Plan: left femoral neck fracture s/p L bipolar arthroplasty by Dr. Brewer 08/28/2016, POD# 3 - Continue pain management - Continue PT/OT - Continue Lovenox for VTE chemoprophylaxis - Continue SCDs/TEDs for mechanical prophylaxis - Okay for discharge to [facility] from an orthopedic standpoint 08/28/16 10:24 08/31/16 13:16 Subjective: Pt states he is feeling better today. He has been up ambulating with PT. Per nurse, pt has been doing well using Tylenol for pain. Pt denies fever, chills, chest pain, SOB, abdominal pain, N/V/D, calf pain, numbness and tingling. Objective: Pt appears comfortable. He is sitting up in the chair eating lunch. Vital Signs Temp Pulse Resp BP Pulse Ox 36.4 C 82 16 134/64 H 95 08/31/16 11:21 08/31/16 11:21 08/31/16 11:21 08/31/16 11:21 08/31/16 11:21 Microbiology 08/29/16 01:39 Urine Culture - Final Urine,Clean Catch Laboratory Results 08/31/16 05:40 08/31/16 05:40 08/30/16 08/31/16 09/01/16 05:59 05:59 05:59 Intake Total 800 300 Output Total 850 800 2 Balance -50 -500 -2 PT 13.6 SEC (12.0-15.0) 08/27/16 18:36 INR 1.05 (0.83-1.16) 08/27/16 18:36 Physical Exam - Physical Exam General Appearance: alert, no apparent distress Respiratory: other (normal respiratory effort) Skin: normal color, warm/dry, other (Incision site c/d/i) Extremities: normal capillary refill, other (Strength and sensation intact in the lower extremities), No pedal edema, No calf tenderness, No swelling, No David's sign Neuro/Psych: no motor/sensory deficits, alert, normal mood/affect ICD10 Worksheet Patient Problems: Problems Problem Status Onset Coronary artery disease Acute Left displaced femoral neck fracture Acute Vascular dementia Acute
[2016-08-31] MEDS ORDERED: FUROSEMIDE 40 MG/4 ML VIAL IVP ONE (15:29)
--- NOTE | 2016-08-31 15:34 | HOSPPROG ---
Hospitalist Progress Note Assessment/Plan: 86y male with mechanical fall and hip pain. Doing well from an ortho perspective. Hospitalization complicated by resp failure likely multifactorial. Has responded well to Lasix yesterday and will receive additional lasix today. He does not have a baseline supplemental O2 requirement. #Hip fx POD #3 WBAT PT/OT #Anemia follow labs stable #Fever ?etiol possible multifactorial ATX, UTI, postop #Hypotension stable #Acute hypoxemic resp failure cont o2 ? multiple reasons Likely due to CHF (diastolic) and Bilateral Pneumonia #Pain cont meds and support #Hx of Cad ECHO, EF 50-55% diastolic dysfunction some CHF, repeat dose of IV lasix today 40mg follow, may need more #Parkinsons cont sinemet #Dementia close to baseline #UTI on CTX follow cx #DVT proph per ortho #Dispo unclear, inpt rehab consult ordered follow labs Plan: -additional diuretics today -May be ready for discharge tomorrow. Subjective: SOB is improving. Now on 3L o2. No CP. Objective: Vital Signs Temp Pulse Resp BP Pulse Ox 36.9 C 87 18 153/81 H 94 08/31/16 15:11 08/31/16 15:11 08/31/16 15:11 08/31/16 15:11 08/31/16 15:11 Microbiology 08/29/16 01:39 Urine Culture - Final Urine,Clean Catch Laboratory Results 08/31/16 05:40 08/31/16 05:40 08/30/16 08/31/16 09/01/16 05:59 05:59 05:59 Intake Total 800 300 Output Total 850 800 2 Balance -50 -500 -2 PT 13.6 SEC (12.0-15.0) 08/27/16 18:36 INR 1.05 (0.83-1.16) 08/27/16 18:36 - Physical Exam Constitutional: no apparent distress, not in pain Eyes: PERRL, EOMI Ears, Nose, Mouth, Throat: moist mucous membranes Cardiovascular: regular rate and rhythym, edema Respiratory: no respiratory distress, reduced air movement, No no rales or rhonchi, No clear to auscultation Gastrointestinal: normoactive bowel sounds Skin: warm, normal color Musculoskeletal: full muscle strength Psychiatric: interacting appropriately, not anxious Lymph, Heme, Immunologic: no cervical LAD ICD10 Worksheet Patient Problems: Problems Problem Status Onset Coronary artery disease Acute Left displaced femoral neck fracture Acute Vascular dementia Acute
[2016-09-01 04:55] LABS: % IMMATURE GRANULYOCYTES 0.6 % (0.0-1.1); ABSOLUTE IMMATURE GRANULOCYTES 0.05 10^3/uL (0.00-0.10); ADD DIFF? NO; ADD MORPH? NO; ADD SCAN? NO; ATYPICAL LYMPHOCYTE FLAG 0 (0-99); FRAGMENT RBC FLAG 0 (0-99); HEMOGLOBIN 10.6 g/dL (13.7-17.5); LEFT SHIFT FLG 10 (0-99); LIPEMIA HEMOLYSIS FLAG 90 (0-99); MEAN CELL HEMOGLOBIN 32.6 pg (27.9-34.1); MEAN CELL HEMOGLOBIN CONCENTR. 34.2 g/dL (32.4-36.7); MEAN CELL VOLUME 95.4 fL (81.5-99.8); MEAN PLATELET VOLUME 11.6 fL (8.7-11.7); PLATELET CLUMPS FLAG 0 (0-99); PLATELET COUNT 81 10^3/uL (150-400); RED BLOOD CELL COUNT 3.25 10^6/uL (4.40-6.38); RED CELL DISTRIBUTION WIDTH 12.4 % (11.5-15.2)
[2016-09-01 05:14] LABS: ANION GAP 9 mEq/L (8-16); CALCIUM 8.6 mg/dL (8.5-10.4); CARBON DIOXIDE 27 mEq/l (22-31); CHLORIDE 102 mEq/L (97-110); GLOMERULAR FILTRATION RATE > 60; GLUCOSE 120 mg/dL (70-100); POTASSIUM 4.3 mEq/L (3.5-5.2); SODIUM 138 mEq/L (134-144)
[2016-09-01 06:48] VITALS: RESP 18; TEMP 98.6
[2016-09-01] MEDS: CARBIDOPA/LEVODOPA 25 MG/100 MG TAB PO SCH (08:22)
[2016-09-01] MEDS: VITAMIN B COMPLEX 1 EA CAP/TAB PO SCH (08:22)
[2016-09-01] MEDS: MAGNESIUM OXIDE 400 MG TAB PO SCH (08:23)
[2016-09-01] MEDS: ASCORBIC ACID 500 MG TAB PO SCH (08:23)
[2016-09-01] MEDS: CHOLECALCIFEROL VIT D3 2,000 UNITS TAB/CAP PO SCH (08:23)
[2016-09-01] MEDS: TAMSULOSIN HCL 0.4 MG CAP PO SCH (08:23)
[2016-09-01] MEDS: CYANO/VITAMIN B12 1000 MCG TAB PO SCH (08:23)
[2016-09-01] MEDS: CITALOPRAM 20 MG TAB PO SCH (08:23)
[2016-09-01] MEDS: SENNOSIDES/DOCUSATE SODIUM TAB PO SCH (08:23)
[2016-09-01] MEDS: ENOXAPARIN 40 MG/0.4 ML SYR SC SCH (08:24)
--- NOTE | 2016-09-01 10:47 | SOAPPROG ---
SOAP Progress Note Assessment/Plan: Assessment/Plan: left femoral neck fracture s/p L bipolar arthroplasty by Dr. Brewer 08/28/2016, POD# 4 - Continue pain management - Continue PT/OT - Continue Lovenox for VTE chemoprophylaxis - Continue SCDs/TEDs for mechanical prophylaxis - Okay for discharge to [facility] from an orthopedic standpoint 08/28/16 10:24 08/31/16 13:16 09/01/16 10:45 Subjective: Pt states the pain in his hip is minimal. He has been up with PT. Pt denies fever, chills, chest pain, SOB, abdominal pain, N/V/D, calf pain, numbness and tingling. Objective: Vital Signs Temp Pulse Resp BP Pulse Ox 37.0 C 80 18 147/81 H 93 09/01/16 06:48 09/01/16 06:48 09/01/16 06:48 09/01/16 06:48 09/01/16 06:48 Microbiology 08/29/16 01:39 Urine Culture - Final Urine,Clean Catch Laboratory Results 09/01/16 04:45 09/01/16 04:45 08/31/16 09/01/16 09/02/16 05:59 05:59 05:59 Intake Total 300 Output Total 800 2 Balance -500 -2 PT 13.6 SEC (12.0-15.0) 08/27/16 18:36 INR 1.05 (0.83-1.16) 08/27/16 18:36 Physical Exam - Physical Exam General Appearance: alert, no apparent distress Respiratory: other (effort normal) Cardiac/Chest: normal peripheral pulses Skin: normal color, warm/dry, other (Incision site c/d/i) Extremities: normal inspection, normal capillary refill, No pedal edema, No calf tenderness, No swelling, No David's sign Neuro/Psych: no motor/sensory deficits, alert, normal mood/affect ICD10 Worksheet Patient Problems: Problems Problem Status Onset Coronary artery disease Acute Left displaced femoral neck fracture Acute Vascular dementia Acute
[2016-09-01 11:19] VITALS: BP 133/76; PULSE 77
--- NOTE | 2016-09-01 11:50 | PDIAF ---
- Diagnosis Diagnosis: hip fx Code Status: Do Not Resuscitate - Medication Management Discharge Medications: Medications to Continue on Transfer Carbidopa/Levodopa 25/100Mg [Sinemet 25/100 MG (*)] 0.5 tab PO BID 08/27/16 [ Last Taken 08/27/16] Citalopram Hydrobromide [Celexa] 40 mg PO DAILY 08/27/16 [Last Taken 08/27/16] Furosemide [Lasix 20 MG (*)] 20 mg PO DAILY 08/27/16 [Last Taken 08/27/16] Herbals/Supplements -Info Only 1 ea PO DAILY 08/27/16 [Last Taken Unknown] Multivitamins [Multivitamin (*)] 1 each PO DAILY 08/27/16 [Last Taken 08/27/16] Nitroglycerin [Nitrostat 0.4 mg (*)] 0.4 mg SL AD PRN 08/27/16 [Last Taken Unknown] Tamsulosin HCl [Flomax 0.4 MG (*)] 0.4 mg PO HS 08/27/16 [Last Taken 08/26/16] Ascorbic Acid [Vitamin C 500 mg (*)] 1,500 mg PO BID 08/28/16 [Last Taken Unknown] Cholecalciferol Vit D3 [Vitamin D3 2000 units tab (OTC)] 2,000 units PO DAILY [Last Taken Unknown] Cyanocobalamin [Vitamin B12 (*)] 500 mcg PO DAILY 08/28/16 [Last Taken Unknown] Magnesium Oxide [Magnesium Oxide 400 mg (*)] 400 mg PO DAILY 08/28/16 [Last Taken Unknown] Vitamin B Complex [B Complex] 1 each PO DAILY 08/28/16 [Last Taken Unknown] Acetaminophen [Tylenol 325mg (*)] 650 mg PO Q4HRS PRN #0 tab 09/01/16 [Last Taken Unknown] Acetaminophen [Tylenol Rectal] 650 mg AK Q4HRS PRN #0 supp 09/01/16 [Last Taken Unknown] Enoxaparin [Lovenox 40 MG (*)] 40 mg SC DAILY syr 09/01/16 [Last Taken Unknown] Polyethylene Glycol 3350 [Miralax 17 gm (*)] 17 gm PO DAILY PRN #0 pkt 09/01/16 [Last Taken Unknown] Sennosides/Docusate Sodium [Senokot-S] 1 - 2 tab PO BID tab 09/01/16 [Last Taken Unknown] celeCOXIB [Celebrex (*)] 200 mg PO DAILY cap 09/01/16 [Last Taken Unknown] oxyCODONE IR [Oxycodone Ir (*)] 5 - 10 mg PO Q3HRS PRN #0 tab 09/01/16 [Last Taken Unknown] Discharge Medications: Refer to the Discharge Home Medication list for PRN reason. PICC Care - Routine: N/A - Orders Services needed: Registered Nurse, Physical Therapy, Occupational Therapy Diet Recommendation: no restrictions on diet - Follow Up Care Current Providers and Referrals: Patient,NotPresent [Unknown] - As per Instructions Marlon Brewer MD [Medical Doctor] - (Pt will follow up w/ Dr. Brewer 10-14 days postoperatively in clinic, or sooner with any additional concerns or complaints. He is encouraged to contact the office as soon as possible to schedule this appointment. )
[2016-09-01 14:26] VITALS: O2SAT 90
--- NOTE | 2016-09-01 14:54 | GDS ---
[f rep st] DISCHARGE SUMMARY DISCHARGE DIAGNOSES: 1. Hip fracture. 2. Anemia. 3. Fever. 4. Hypotension. 5. Acute hypoxemic respiratory failure. 6. Pain. 7. History of coronary artery disease. 8. Parkinson's. 9. Dementia. 10. Pyuria. CONSULTATIONS: Dr. Brewer of Orthopedics. PHYSICAL EXAM: GENERAL: The patient is alert. VITAL SIGNS: Afebrile at 37, pulse is 77, respirat ory rate is 18, blood pressure is 133/76. He is saturating 94% on 3 L. I have seen and evaluated t he patient on the day of discharge. HOSPITAL COURSE: The patient is an 86-year-old male, who suffered a mechanical fall and presented t o the emergency room with complaints of hip pain. He was evaluated and diagnosed with. 1. Left hip fracture: During this hospitalization, he received a consultation from Dr. Brewer. He is postop day 4 from surgical intervention. His pain is well controlled and he has been working wit h Physical Therapy and Occupational Therapy. 2. Anemia. This is in the postoperative setting. His blood count is stable prior to disposition w ith no signs of blood loss. 3. Fever. This is likely multifactorial in the postoperative setting. This has resolved. 4. Hypotension, resolved with hydration. 5. Acute hypoxemic respiratory failure. The patient presented with mild diastolic congestive heart failure in the postoperative setting, as well as bilateral lower lobe infiltrates. He was treated in the hospital with IV Rocephin and has been transitioned to Levaquin for the outpatient setting. He will continue Levaquin for a total of 7 days to treat bilateral pneumonia. 6. Pain. This is well controlled. 7. History of coronary artery disease. His echo has an EF of 50% to 55% with some diastolic dysfun ction. 8. Parkinson's. His home Sinemet has been continued. 9. Dementia. His mentation is close to baseline. 10. Pyuria. The patient was treated with antibiotic therapy. His urine culture demonstrated no gr owth so no need for evaluation. DISPOSITION: The patient will be discharged to [facility] for further rehabilitation and management there. No pending studies at the time of disposition. Follow up with Dr. Brewer, the orthopedist, a s well as the patient's primary care physician. I reviewed the patient's disposition with Case Mary gement. I spent greater than 35 minutes in the care, coordination, and management of this patient's discharg e. /[id number]/MODL
== END 2016-09-01 15:00 | DRG 469 ==
LOC: EDUNIT# → F3E 20:12 → F3N 08-28 14:33
PROVIDERS: ADMIT Student in an Organized Health Care Education/Training Program; ATTEND Student in an Organized Health Care Education/Training Program
PROC: 0SRB0JZ Replacement of Left Hip Joint with Synthetic Substitute, Open Approach (ICD-10-PCS; principal; 2016-08-28 14:15)
DX: S72.012A Unspecified intracapsular fracture of left femur, initial encounter for closed fracture (principal); J96.01 Acute respiratory failure with hypoxia; J18.9 Pneumonia, unspecified organism; D62 Acute posthemorrhagic anemia; I50.30 Unspecified diastolic (congestive) heart failure; N39.0 Urinary tract infection, site not specified; I25.10 Atherosclerotic heart disease of native coronary artery without angina pectoris; G31.83 Neurocognitive disorder with Lewy bodies; F02.80 Dementia in other diseases classified elsewhere, unspecified severity, without behavioral disturbance, psychotic disturbance, mood disturbance, and anxiety; W18.39XA Other fall on same level, initial encounter; Y92.511 Restaurant or cafe as the place of occurrence of the external cause; Z95.5 Presence of coronary angioplasty implant and graft; I10 Essential (primary) hypertension; E78.5 Hyperlipidemia, unspecified; N40.0 Benign prostatic hyperplasia without lower urinary tract symptoms; Z66 Do not resuscitate
CPT/HCPCS: 96374; 97116-GP; 97162-GP; 97166-GO; 97530-GP; 97535-GO; G8978-GP-CL; G8979-GP-CK; G8987-GO-CM; G8988-GO-CJ; J0690; J0696; J1650; J1940; J2405; J2704; J3010; P9041